=== PATIENT | female | born 1960 | race Caucasian/White ===

== ENCOUNTER → 2016-11-02 | Outpatient (CLI) | payer BC ==
[~2016-11-02] MED LIST: CATHETER FLUSH 10 ML SYR IV PRN; CETI10TA20 PO; CYCL5TAB PO; DESL5TAB5 PO; DOXY100C2 PO; HYDR-3583 PO; IOHEXOL 350 MG/ML 100 ML (OMNIPAQUE 350) VIAL IV ONE; LRT10T PO; NS 100 ML (IVPB) BAG IV ONE; PIRB14AE4 IH
[2016-11-02 14:01] LABS: ALANINE AMINOTRANSFERASE 21 U/L (0-55); ALBUMIN 4.5 G/DL (3.2-4.5); ANION GAP 10 MMOL/L (5-14); ASPARTATE AMINO TRANSFERASE 23 U/L (5-34); BILIRUBIN,TOTAL 0.4 MG/DL (0.1-1.0); BLOOD UREA NITROGEN 14 MG/DL (7-18); BUN/CREATININE RATIO 16; CALCIUM 9.7 MG/DL (8.5-10.1); CARBON DIOXIDE 28 MMOL/L (21-32); CHLORIDE 102 MMOL/L (98-107); CREATININE SERUM 0.89 MG/DL (0.60-1.30); GFR ESTIMATED > 60; GLUCOSE 90 MG/DL (70-105); POTASSIUM 4.4 MMOL/L (3.6-5.0); SODIUM 140 MMOL/L (135-145); TOTAL PROTEIN 7.2 G/DL (6.4-8.2)
--- NOTE | 2016-11-02 15:31 | Diagnostic Imaging Report ---
PROCEDURE: CT chest with contrast only. TECHNIQUE: Multiple contiguous axial images were obtained through the chest after administration of intravenous contrast. INDICATION: Lung nodule in the lateral aspect of the right lower lobe seen on CT calcium score dated 02/28/16. 75 mL of Omnipaque 350 is administered intravenously. FINDINGS: There is a 4 mm right lower lobe nodule seen laterally on axial image 32. This is presumably the same nodule mentioned in the attached report dated 02/28/2016 with similar size. There are no other suspicious nodules or masses in the lungs. No significant consolidation is seen. There is minimal atelectasis in the dependent areas of the lower lobes bilaterally. The lungs demonstrate no significant findings of emphysema or interstitial lung disease. The heart size is normal. The thoracic aorta is normal in caliber. No mediastinal or hilar lymph nodes are seen. No axillary lymphadenopathy. Sections in the upper abdomen demonstrate no significant abnormality. The osseous structures appear grossly unremarkable. IMPRESSION: Stable 4 mm nonspecific pulmonary nodule in the lateral aspect of the superior segment of the right lower lobe, axial image 32. This is likely a postinfectious scar. If the patient has the risk factors for malignancy, then another followup to prove further stability in 12 months could be obtained with an unenhanced low dose CT scan of the chest. Dictated by: Dictated on workstation # [id number]
== END ==
LOC: RAD 13:11
PROVIDERS: ATTEND Family Medicine
DX: R91.8 Other nonspecific abnormal finding of lung field (principal); E78.5 Hyperlipidemia, unspecified
CPT/HCPCS: 36415; 71260; 80053

== ENCOUNTER → 2017-05-19 | Outpatient (CLI) | payer BC ==
[~2017-05-19] MED LIST changes: -CATHETER FLUSH 10 ML SYR IV PRN; -IOHEXOL 350 MG/ML 100 ML (OMNIPAQUE 350) VIAL IV ONE; -NS 100 ML (IVPB) BAG IV ONE
--- NOTE | 2017-05-20 12:23 | Diagnostic Imaging Report ---
Bilateral screening mammogram 2D views with tomosynthesis. The current study was also evaluated with a Computer Aided Detection (CAD) system. INDICATION: Screening. No current complaints stated on the questionnaire. COMPARISON: 05/18/16. FINDINGS: The breasts are composed of heterogeneously dense parenchyma which may decrease mammographic sensitivity. There is a benign-appearing calcification seen. No mass, architectural distortion or suspicious cluster of calcifications are identified. Allowing for technique and positional differences, no suspicious change is seen. IMPRESSION: Dense breasts with no definite change. ACR BI-RADS Category 2: Benign findings. Result letter will be mailed to the patient. Note: At least 10% of breast cancer is not imaged by mammography. Dictated by: Dictated on workstation # [id number]
== END ==
LOC: RAD 14:45
PROVIDERS: ATTEND Nurse Practitioner
DX: Z12.31 Encounter for screening mammogram for malignant neoplasm of breast (principal)

== ENCOUNTER → 2018-05-02 | Outpatient (CLI) | payer BC ==
--- NOTE | 2018-05-02 12:19 | Diagnostic Imaging Report ---
PROCEDURE: CT chest with contrast only. TECHNIQUE: Multiple contiguous axial images were obtained through the chest after administration of intravenous contrast. INDICATION: Lung nodule. FINDINGS: The previous CT chest exam of 11/02/2016 noted a 4 mm noncalcified pulmonary nodule in the lateral aspect of the superior segment of the right lower lobe. That findings is again evident on this study and unchanged in size or appearance (image 35/67). The overall appearance of the lungs is stable as well. There is no other mass identified. There is no sign of failure, pneumonia, or pleural effusion either. The heart size is stable and within normal limits. The aorta is not abnormally dilated and there is no evidence for a dissection. The pulmonary arteries were not fully opacified but there is no defect to indicate a pulmonary embolus. There is no mediastinal or hilar adenopathy. The thyroid gland is unremarkable. There is no obvious breast mass. The sections through the upper abdomen fail to show any evidence for an acute abnormality. The bone windows do show that in the interval since the previous exam mild (10-20%) compression deformities of the superior endplates of T3 and T5 have developed. These injuries may be subacute in nature. If further evaluation is desired, then MRI would be recommended. There is no other bony abnormality appreciated. IMPRESSION: 1. The small nodule in the superior segment of the right lower lobe seen previously appears stable. Most likely, this is a benign process. A six-month followup CT chest exam would be recommended to establish a two-year stability of this nodule. 2. There is no acute cardiopulmonary abnormality noted. 3. There appear to be subacute compression fractures of T3 and T5. If further imaging is desired, then MRI would be recommended. 4. These results were called to Zina Og APRN at the time of this dictation.. Critical finding Dictated by: Dictated on workstation # [id number]
--- NOTE | 2018-05-02 12:43 | Diagnostic Imaging Report ---
EXAMINATION: Thoracic spine. INDICATION: Back pain. AP, lateral, and swimmer's views were obtained. FINDINGS: As noted on the CT chest exam performed in conjunction with this study, there do appear to be mild compression deformities involving the superior endplates of T3 and T5. The age of these injuries is indeterminate, but these could be subacute in nature. MRI would be recommended for further evaluation if clinically indicated. The other vertebral body heights are within normal limits, and the intervertebral spaces are fairly well maintained. There is mild levoscoliosis of the lower thoracic spine. There is no sign of a paraspinal mass. IMPRESSION: 1. The mild compression deformities of the superior endplates of T3 and T5 seen on the MRI exam are again visualized. These injuries may be subacute in nature. Recommendations as above. 2. There is no acute bony abnormality identified otherwise. Dictated by: Dictated on workstation # [id number]
== END ==
LOC: RAD 09:05
PROVIDERS: ATTEND Nurse Practitioner Gerontology
DX: M43.8X4 Other specified deforming dorsopathies, thoracic region (principal); R91.1 Solitary pulmonary nodule; W19.XXXS Unspecified fall, sequela
CPT/HCPCS: 71260; 72072

== ENCOUNTER → 2018-05-07 | Outpatient (CLI) | payer BC ==
[~2018-05-07] MED LIST changes: +GADOBUTROL 7.5 MMOL/7.5 ML (GADAVIST) VIAL IV ONE
--- NOTE | 2018-05-07 09:49 | Diagnostic Imaging Report ---
MRI thoracic spine with and without contrast. Indication: Fall. Back pain. Abnormal x-rays. Comparison is made with prior plain film examination from 05/02/2018. Technique: A multiplanar multisequence MRI of the thoracic spine was performed with and without contrast. Findings: Mild anterior column superior endplate fractures of T3 and T5 are again identified. By MRI imaging there is no significant edema present within these vertebral bodies suggesting that these are subacute to chronic. The remainder of the vertebral body heights appear well-maintained. There is no focal marrow signal abnormality evident to suggest an acute osseous injury or suspicious marrow replacing lesion. There is no thoracic cord signal abnormality demonstrated. There is no abnormal epidural process. There are some tiny minimal lower thoracic disc bulges and some minimal facet hypertrophy. There are however no MR findings of significant thoracic canal or neural foraminal stenosis. The paraspinal soft tissues appear unremarkable. Thoracic aorta normal in caliber. The kidneys appear nonobstructed. Postcontrast imaging demonstrates no evidence of pathologic enhancement. Impression: 1. Unchanged mild anterior column superior endplate compression fractures at T3 and T5. These demonstrate no significant edema suggesting that these are subacute to chronic. No acute osseous injury evident. 2. There is no cord signal abnormality or abnormal epidural process. 3. No MR findings of significant thoracic canal or neural foraminal stenosis. 4. No evidence of pathologic enhancement. Dictated by: Dictated on workstation # [id number]
== END ==
LOC: RAD 07:51
PROVIDERS: ATTEND Nurse Practitioner Gerontology
DX: S22.030A Wedge compression fracture of third thoracic vertebra, initial encounter for closed fracture (principal); S22.050A Wedge compression fracture of T5-T6 vertebra, initial encounter for closed fracture; W19.XXXA Unspecified fall, initial encounter
CPT/HCPCS: 72157

== ENCOUNTER → 2018-05-27 | Outpatient (CLI) | payer BC ==
[~2018-05-27] MED LIST changes: -GADOBUTROL 7.5 MMOL/7.5 ML (GADAVIST) VIAL IV ONE
--- NOTE | 2018-05-30 09:04 | Diagnostic Imaging Report ---
Indication: Routine screening. Comparison is made with prior mammogram from 05/19/2017 and 05/18/2016. 2-D and 3-D bilateral screening mammography was performed with CAD. Scattered fibroglandular densities are identified bilaterally. The parenchymal pattern is stable. No mass or malignant appearing microcalcifications are seen. Axilla unremarkable. Impression: BI-RADS category 1 No mammographic features suspicious for malignancy are identified. ACR BI-RADS Category 1: Negative. Result letter will be mailed to the patient. Note: At least 10% of breast cancer is not imaged by mammography. Dictated by: Dictated on workstation # [id number]
== END ==
LOC: RAD 12:58
PROVIDERS: ATTEND Obstetrics & Gynecology
DX: Z12.31 Encounter for screening mammogram for malignant neoplasm of breast (principal)
CPT/HCPCS: 77067

== ENCOUNTER → 2019-07-28 | Outpatient (CLI) | payer BC ==
--- NOTE | 2019-07-28 14:13 | Diagnostic Imaging Report ---
EXAMINATION: CT Chest without contrast. TECHNIQUE: Multiple contiguous axial images were obtained through the chest without the use of intravenous contrast. All CT scans use one or more of the following dose optimizing techniques: automated exposure control, MA and/or KvP adjustment based on a patient size and exam type, or iterative reconstruction. HISTORY: LUNG NODULE COMPARISON: 05/02/2019 FINDINGS: There is no edema or pneumonia. No pleural effusion. No pneumothorax. There is a stable 4 mm nodule in the right lower lobe. Heart size is normal. No coronary artery calcifications. No pericardial effusion. Aorta is normal in caliber. There is no axillary or supraclavicular lymphadenopathy. There is no mediastinal lymphadenopathy. Limited views of the upper abdomen show a small hiatal hernia. Mild compression fracture of an upper thoracic vertebrae is unchanged. IMPRESSION: 1. Stable 4 mm right lower lobe pulmonary nodule, can be considered benign with no further follow-up given the stability since 2017. Dictated by: Dictated on workstation # [id number]
== END ==
LOC: RAD 13:26
PROVIDERS: ATTEND Family Medicine
DX: R91.1 Solitary pulmonary nodule (principal)
CPT/HCPCS: 71250

== ENCOUNTER → 2019-08-07 | Outpatient (CLI) | payer BC ==
[~2019-08-07] MED LIST changes: -CETI10TA20 PO; +CETI10TA21 PO; +LEVO50TA6 PO; +RT-ALBUINH IH
--- NOTE | 2019-08-07 12:22 | Diagnostic Imaging Report ---
PROCEDURE: US Thyroid. TECHNIQUE: Multiple real-time grayscale images were obtained of the thyroid in various projections. INDICATION: Thyroid nodule. FINDINGS: The right lobe of the thyroid measures 4.5 x 1.2 x 1.3 cm and the left lobe measures 4.5 x 0.9 x 1.0 cm. Isthmus is 2 mm in thickness. There is a hypoechoic nodule in upper pole left lobe of the thyroid measuring 6 mm x 4 mm x 5 mm. Small hypoechoic nodule in the upper pole right lobe is also noted measuring 6 mm x 3 mm x 5 mm. No dominant thyroid mass is detected. IMPRESSION: Bilateral subcentimeter thyroid nodules. No dominant thyroid mass is detected. Dictated by: Dictated on workstation # [id number]
== END ==
LOC: RAD 09:45
PROVIDERS: ATTEND Internal Medicine Endocrinology, Diabetes & Metabolism
DX: M85.80 Other specified disorders of bone density and structure, unspecified site (principal); E04.2 Nontoxic multinodular goiter
CPT/HCPCS: 36415; 76536; 82306

== ENCOUNTER → 2019-08-07 | Outpatient (CLI) | payer BC ==
--- NOTE | 2019-08-07 10:51 | Diagnostic Imaging Report ---
INDICATION: Routine screening. Comparison is made prior mammogram from 05/27/2018 and 05/19/2017. 2-D and 3-D bilateral screening mammography was performed with CAD. Both breasts are heterogeneously dense, limiting the sensitivity of mammography. Benign calcifications are noted bilaterally. No dominant mass or malignant-appearing microcalcifications are seen. Axillae are unremarkable. IMPRESSION: BI-RADS Category 2 No mammographic features suspicious for malignancy are identified. ACR BI-RADS Category 2: Benign findings. Result letter will be mailed to the patient. Note: At least 10% of breast cancer is not imaged by mammography. Dictated by: Dictated on workstation # [id number]
--- NOTE | 2019-08-07 12:25 | Diagnostic Imaging Report ---
PROCEDURE: US non-OB pelvis comp/trans. TECHNIQUE: Multiple real-time grayscale images were obtained of the pelvis in various projections endovaginally. Transabdominal imaging was also performed. INDICATION: Right adnexal mass on physical exam. FINDINGS: The uterus is anteverted measuring 6.8 x 3.1 x 4.1 cm. No discrete myometrial mass is detected. Endometrium is not well visualized on today's study. There appears to be a somewhat echogenic mass in the region of the right adnexa measuring 8.5 x 6.8 x 7.7 cm. No internal blood flow is seen. Left ovary is surgically absent. There is no free fluid. IMPRESSION: Echogenic right adnexal mass. This could potentially represent an ovarian dermoid with fat content. A CT may be useful for further evaluation. No other significant abnormality is seen. Dictated by: Dictated on workstation # [id number]
== END ==
LOC: RAD 09:43
PROVIDERS: ATTEND Obstetrics & Gynecology
DX: Z12.31 Encounter for screening mammogram for malignant neoplasm of breast (principal); R19.09 Other intra-abdominal and pelvic swelling, mass and lump
CPT/HCPCS: 76830; 76856; 77067

== ENCOUNTER 2019-08-10 05:34 | Outpatient (CLI) | payer BC ==
[~2019-08-10] VITALS: Ht 172.7 cm; Wt 77.3 kg
[~2019-08-10 05:34] MED LIST changes: -LEVO50TA6 PO; -RT-ALBUINH IH
[2019-08-10] MEDS ORDERED: RT-ALBUINH IH (08:47)
[2019-08-10] MEDS ORDERED: LEVO50TA6 PO (08:47)
== END 2019-08-10 09:08 | disposition home or self-care (01) ==
LOC: PREOP 05:34
PROVIDERS: ATTEND Obstetrics & Gynecology
DX: Z01.818 Encounter for other preprocedural examination (principal)

== ENCOUNTER → 2020-09-17 | Outpatient (CLI) | payer BC ==
[~2020-09-17] MED LIST changes: -CETI10TA21 PO; +CETI10TA49 PO; +DCS100C PO; +HYDR-34 PO; +IBUP-844 PO; +LEVO50TA6 PO; +RT-ALBUINH IH; +SIME80TA16 PO
--- NOTE | 2020-09-17 11:42 | Diagnostic Imaging Report ---
INDICATION: Postmenopausal state. COMPARISON: None available. FINDINGS: AP Spine L1-L4: [BMD (g/cm2): 0.988] [T-Score: -1.8] [Z-Score: -1.1] [BMD Previous: na] [BMD % Change: na] LT Hip Neck: [BMD (g/cm2): 0.775] [T-Score: -1.9] [Z-Score: -1.0] LT Hip Total: [BMD (g/cm2):0.792] [T-Score:-1.7] [Z-Score: -1.1] [BMD Previous: na] [BMD % Change: na] RT Hip Neck: [BMD (g/cm2):0.751] [T-Score:-2.1] [Z-Score:-1.1] RT Hip Total: [BMD (g/cm2):0.786] [T-score:-1.8] [Z-Score:-1.2] [BMD Previous:na] [BMD % Change:na] *Indicates significant change from prior examination based on 95% confidence level. World Health Organization criteria for BMD interpretation classify patients as Normal (T-score at or above -1.0), Osteopenic (T-score between -1.0 and -2.5) or Osteoporotic (T-score at or below -2.5). LIMITATIONS AND MODIFICATION: None. FRACTURE RISK (FRAX SCORE): The ten year probability of (%): Major Osteoporotic Fracture: [16.4] Hip Fracture: [2.3] IMPRESSION: 1. Osteopenia (Low bone mass). 2. Baseline examination. 3. See below National Osteoporosis Foundation guidelines on when to potentially initiate pharmacologic therapy. Based on the National Osteoporosis Foundation Guidelines, pharmacologic treatment should be initiated in any of the following, unless clinical conditions suggest otherwise: * Any patient with prior fragility fracture of the hip or vertebrae. A spine fracture indicates 5X risk for subsequent spine fracture and 2X risk for subsequent hip fracture. * Osteoporosis (T-score <-2.5). * Postmenopausal women and men age 50 and older with low bone mass/osteopenia (T-score between -1.0 and -2.5) by DXA and 10-year major osteoporotic fracture greater than 20% or a 10-year probability of hip fracture greater than 3%. These fracture risks are supplied above in the FRAX score, if applicable. * Clinician judgement and/or patient preferences may indicate treatment for people with 10-year fracture probabilities above or below these levels. Dictated by: Dictated on workstation # [id number]
== END ==
LOC: RAD 08:30
PROVIDERS: ATTEND Internal Medicine Endocrinology, Diabetes & Metabolism
DX: M85.80 Other specified disorders of bone density and structure, unspecified site (principal); Z78.0 Asymptomatic menopausal state
CPT/HCPCS: 77080

== ENCOUNTER → 2020-09-30 | Outpatient (CLI) | payer BC ==
--- NOTE | 2020-09-30 13:46 | Diagnostic Imaging Report ---
PROCEDURE: US Thyroid. TECHNIQUE: Multiple real-time grayscale images were obtained of the thyroid in various projections. INDICATION: Thyroid nodule. Correlation is made with prior thyroid ultrasound from 08/07/2019. FINDINGS: Right lobe of thyroid measures 4.8 x 1.3 x 1.0 cm, left lobe measures 4.4 x 0.9 x 1.2 cm. Isthmus is 3 mm in thickness. There is a mixed echogenicity nodule in the upper pole right lobe are not definitely seen on prior exam, measuring 11 mm x 3 mm a 7 mm. 2nd nodule just inferior to this in the right lobe measures 5 mm x 4 mm x 4 mm compared with 6 mm x 3 mm x 5 mm on prior. Tiny nodule upper pole left lobe measures 5 mm x 3 mm x 4 mm compared with 6 mm x 4 mm x 5 mm on prior. No dominant thyroid mass is detected. No microcalcifications are seen. IMPRESSION: Bilateral thyroid nodules. There is a new nodule in the upper pole right lobe. Continued follow-up is recommended in 6-12 months show continued stability. No dominant thyroid mass is detected. Dictated by: Dictated on workstation # [id number]
== END ==
LOC: RAD 10:46
PROVIDERS: ATTEND Internal Medicine Endocrinology, Diabetes & Metabolism
DX: E04.2 Nontoxic multinodular goiter (principal)
CPT/HCPCS: 76536

== ENCOUNTER → 2020-09-30 | Outpatient (CLI) | payer BC ==
--- NOTE | 2020-09-30 13:46 | Diagnostic Imaging Report ---
INDICATION: Routine screening. COMPARISON: 08/07/2019 and 05/27/2018. TECHNIQUE: 2D and 3D bilateral screening mammography was performed with CAD. FINDINGS: Both breasts are heterogeneously dense, limiting the sensitivity of mammography. The parenchymal pattern is stable. No mass or malignant appearing microcalcifications are seen. There are benign calcifications present. The axillae are unremarkable. IMPRESSION: No mammographic features suspicious for malignancy are identified. ACR BI-RADS Category 2: Benign findings. Result letter will be mailed to the patient. Note: At least 10% of breast cancer is not imaged by mammography. Dictated by: Dictated on workstation # [id number]
== END ==
LOC: RAD 10:47
PROVIDERS: ATTEND Obstetrics & Gynecology
DX: Z12.31 Encounter for screening mammogram for malignant neoplasm of breast (principal)
CPT/HCPCS: 77063; 77067

== ENCOUNTER → 2020-10-11 | Outpatient (CLI) | payer BC ==
--- NOTE | 2020-10-11 10:08 | Diagnostic Imaging Report ---
PROCEDURE: US Gallbladder. TECHNIQUE: Multiple real-time grayscale images were obtained over the right upper quadrant in various projections. INDICATION: Right upper quadrant pain There are no prior studies available for comparison. There is no evidence for cholelithiasis or acute cholecystitis and the common bile duct is not dilated. The liver does not appear to be enlarged and there is no focal mass involving the liver. Spectral color flow imaging of the portal vein shows the vein is patent. The pancreas is somewhat prominent but there is no evidence for a pancreatic mass. The right kidney, the aorta and inferior vena cava were unremarkable. IMPRESSION: 1. There is no acute abnormality in the right upper quadrant. 2. If clinical concern regarding an underlying abnormality of the gallbladder persists, then a nuclear medicine hepatobiliary scan would be recommended. Dictated by: Dictated on workstation # [id number]
== END ==
LOC: RAD 08:16
PROVIDERS: ATTEND Obstetrics & Gynecology
DX: R10.11 Right upper quadrant pain (principal)
CPT/HCPCS: 76705

== ENCOUNTER → 2021-02-27 | Outpatient (CLI) | payer BC ==
[~2021-02-27] VITALS: Ht 172.7 cm; Wt 77.6 kg
[~2021-02-27] MED LIST changes: +ALEN70TA80 PO; +ATOR10TA66 PO; +CALC-823 PO; +CHOL400T29 PO; +EST30C VG; +FLUT15.845 NS; +MOME17SP9 NS; +MONT10TA32 PO; +MULT-974 PO; +OMG1KC PO
== END | disposition home or self-care (01) ==
LOC: PREOP 07:14
PROVIDERS: ATTEND Surgery
DX: Z01.818 Encounter for other preprocedural examination (principal)

== ENCOUNTER 2021-03-11 06:58 | Day surgery (SDC) | payer BC ==
[~2021-03-11] VITALS: Ht 172.7 cm; Wt 77.6 kg
[~2021-03-11 06:58] MED LIST changes: -DCS100C PO; +DOCU-239 PO
[2021-03-11] MEDS ORDERED: LACTATED RINGERS 1,000 ML IV STA (07:01)
[2021-03-11] MEDS ORDERED: LACTATED RINGERS 1,000 ML IV ONE (07:14)
[2021-03-11] MEDS ORDERED: MIDAZOLAM 2 MG/2 ML (VERSED) VIAL ONE (07:16)
[2021-03-11] MEDS ORDERED: PROPOFOL INJECTION 50 ML IV ONE (07:16)
[2021-03-11 07:20] VITALS: BP 132/71
[2021-03-11 08:40] VITALS: BP 95/53
[2021-03-11 08:45] VITALS: BP_SYST 89; BP_SYST 93; BP_DIAS 50; BP_DIAS 53
--- NOTE | 2021-03-11 08:52 | Progress Note-Post Operative ---
Post-Operative Progess Note Surgeon (s)/External Grinder Tender (s) Surgeon ANGE PAUL DO External Grinder Tender: na Pre-Operative Diagnosis family hx colon cancer Post-Operative Diagnosis diverticulosis Procedure & Operative Findings Date of Procedure 03/11/21 Procedure Performed/Findings colonoscopy Anesthesia Type per laminating machine feeder Estimated Blood Loss Estimated blood loss (mL): na Specimens/Packing Specimens Removed na ANGE PAUL DO Mar 11, 2021 08:52
[2021-03-11 09:08] VITALS: BP 107/63
--- NOTE | 2021-03-11 09:23 | Discharge Inst-Simple/Standard ---
Discharge Inst-Standard Patient Instructions/Follow Up Plan of Care/Instructions/FU: 1-2 weeks [place] Activity as Tolerated: Yes Discharge Diet: Regular Diet ANGE PAUL DO Mar 11, 2021 09:23
--- NOTE | 2021-03-11 14:28 | OPERATIVE REPORT ---
DATE OF SERVICE: 03/11/2021 PREOPERATIVE DIAGNOSIS: Family history of colon cancer. POSTOPERATIVE DIAGNOSIS: Diverticulosis. PROCEDURE: Colonoscopy. SURGEON: Ange Miguel DO ANESTHESIA: Per STITCH MARKER. ESTIMATED BLOOD LOSS: None. COMPLICATIONS: None. INDICATIONS: The patient is a 60-year-old female needing screening colonoscopy. She has family history of colon cancer. She understands risks and benefits of procedure and wished to proceed with procedure. Consent was signed in the chart. DESCRIPTION OF PROCEDURE: The patient was taken to endoscopy suite, placed in left lateral recumbent position. Timeout was performed. Digital rectal exam was performed. There were no palpable polyps, masses or ulcerations. Scope was inserted in the rectum and advanced all the way to cecum with minimal difficulty. Prep was adequate. Scope was then slowly retracted back. There were no polyps, masses or ulcerations within the cecum, ascending, transverse, descending and sigmoid colon. In the sigmoid colon, a minimal amount of diverticulosis present. Once in the rectum, scope was retroflexed noting no other pathology. Scope was returned to its normal position, slowly withdrawn until completely removed. The patient tolerated procedure well without any complications. She was taken to recovery room in stable condition. RECOMMENDATIONS: The patient will need repeat colonoscopy in 5 years. We recommend high-fiber diet due to diverticulosis. The patient will follow up in 5 years for repeat colonoscopy. The patient has no other concerns and will be followed in the office in one to two weeks. Job ID: [id number] DocumentID: [id number] Dictated Date: 03/11/2021 08:53:59 Package Reinspector Date: 03/11/2021 14:27:22 Dictated By: ANGE MIGUEL DO
--- NOTE | 2021-03-11 14:31 | Anesthesia-General Post-Op ---
MAC Patient Condition Mental Status/LOC: Same as Preop Cardiovascular: Satisfactory Nausea/Vomiting: Absent Respiratory: Satisfactory Pain: Controlled Complications: Absent Post Op Complications Complications None Follow Up Care/Instructions Patient Instructions None needed. Anesthesiology Discharge Order Discharge Order Patient is doing well, no complaints, stable vital signs, no apparent adverse anesthesia problems. No complications reported per nursing. RENU LEE CRNA Mar 11, 2021 14:31
== END 2021-03-11 09:44 | disposition home or self-care (01) ==
LOC: ENDO 06:58
PROVIDERS: ATTEND Surgery
DX: Z12.11 Encounter for screening for malignant neoplasm of colon (principal); K57.30 Diverticulosis of large intestine without perforation or abscess without bleeding; Z80.0 Family history of malignant neoplasm of digestive organs; E03.9 Hypothyroidism, unspecified; Z79.890 Hormone replacement therapy; Z79.899 Other long term (current) drug therapy; J45.909 Unspecified asthma, uncomplicated

== ENCOUNTER → 2021-04-07 | Outpatient (CLI) | payer BC ==
[~2021-04-07] MED LIST changes: +CATHETER FLUSH 10 ML SYR IV PRN
--- NOTE | 2021-04-07 15:01 | Diagnostic Imaging Report ---
INDICATION: Right upper quadrant pain. EXAMINATION: Hepatobiliary scan on 04/07/2021. FINDINGS: After the uneventful administration of 5.4 mCi of technetium 99m Choletec intravenously, subsequent imaging was performed with prompt homogeneous uptake seen throughout the liver. The small bowel and gallbladder are seen in less than 60 minutes. Subsequent administration of Ensure orally with continued imaging performed for another 60 minutes. Ejection fraction was calculated at 42.9%. IMPRESSION: 1. No obstructive process. 2. Normal ejection fraction. Dictated by: Dictated on workstation # [id number]
== END ==
LOC: CARD 12:05
PROVIDERS: ATTEND Surgery
DX: R10.11 Right upper quadrant pain (principal)
CPT/HCPCS: 78227

== ENCOUNTER → 2021-12-12 | Outpatient (CLI) | payer BC ==
[~2021-12-12] MED LIST changes: -CATHETER FLUSH 10 ML SYR IV PRN; +MOME17SP11 NS; -MOME17SP9 NS; +MONT-40 PO; -MONT10TA32 PO
--- NOTE | 2021-12-12 16:53 | Diagnostic Imaging Report ---
INDICATION: Routine screening. COMPARISON: Prior mammograms from 09/30/2020 and 08/07/2019. EXAMINATION: 2D and 3D bilateral screening mammography was performed with CAD. The current study was also evaluated with a Computer Aided Detection (CAD) system. FINDINGS: Both breasts are heterogeneously dense, limiting the sensitivity of mammography. No dominant mass or malignant-appearing microcalcifications are seen. There are benign calcifications present. Axillae are unremarkable. IMPRESSION: No mammographic features suspicious for malignancy are identified. ACR BI-RADS Category 2: Benign findings. Result letter will be mailed to the patient. Note: At least 10% of breast cancer is not imaged by mammography. Dictated by: Dictated on workstation # [id number]
== END ==
LOC: RAD 15:05
PROVIDERS: ATTEND Obstetrics & Gynecology
DX: Z12.31 Encounter for screening mammogram for malignant neoplasm of breast (principal)
CPT/HCPCS: 77063; 77067

== ENCOUNTER → 2022-10-27 | Outpatient (CLI) | payer BC ==
[~2022-10-27] MED LIST changes: +ALBU8.5H6 IH; -RT-ALBUINH IH
--- NOTE | 2022-10-27 17:20 | Diagnostic Imaging Report ---
PROCEDURE: US Thyroid. TECHNIQUE: Multiple real-time grayscale images were obtained of the thyroid in various projections. INDICATION: Thyroid nodules, follow-up. CORRELATION is made with prior ultrasound from 09/30/2020. Right lobe of the thyroid measures 4.8 x 1.0 x 1.3 cm and the left lobe measures 4.4 x 0.9 x 1.3 cm. Isthmus is 2 mm in thickness. Bilateral subcentimeter thyroid nodules are again noted measuring very similar in size when compared with prior examination from 2 years earlier. No dominant thyroid mass is identified. There are 2 mixed echogenicity nodules in the upper pole of the right lobe with a mixed echogenic nodule in the upper pole left lobe. IMPRESSION: Bilateral subcentimeter thyroid nodules, stable when compared with prior examination from 2 years earlier. Dictated on workstation # [id number]
== END ==
LOC: RAD 11:40
PROVIDERS: ATTEND Internal Medicine Endocrinology, Diabetes & Metabolism
DX: E04.2 Nontoxic multinodular goiter (principal); E03.8 Other specified hypothyroidism; M81.0 Age-related osteoporosis without current pathological fracture
CPT/HCPCS: 76536

== ENCOUNTER → 2023-03-01 | Outpatient (CLI) | payer BC ==
--- NOTE | 2023-03-01 19:39 | Diagnostic Imaging Report ---
Indication: Routine screening. Comparison is made with prior mammograms 12/12/2021 and 09/30/2020. 2-D and 3-D bilateral screening mammography was performed with CAD. Scattered fibroglandular densities are identified bilaterally. The parenchymal pattern is stable. No mass or malignant-appearing microcalcifications are identified. A benign nodule in the upper outer left breast is stable. Axillae are unremarkable. IMPRESSION: BI-RADS Category 2 No mammographic features suspicious for malignancy are identified. ACR BI-RADS Category 2: Benign findings. Result letter will be mailed to the patient. Note: At least 10% of breast cancer is not imaged by mammography. Dictated by: Dictated on workstation # [id number]
== END ==
LOC: RAD 14:54
PROVIDERS: ATTEND Obstetrics & Gynecology
DX: Z12.31 Encounter for screening mammogram for malignant neoplasm of breast (principal)
CPT/HCPCS: 77063; 77067